=== PATIENT | male | born 1955 | race Caucasian/White ===

== ENCOUNTER 2016-10-21 10:28 | Inpatient (IN) | payer OTHER ==
[~2016-10-21] VITALS: Ht 190.5 cm; Wt 113.7 kg
[2016-10-21 11:58] VITALS: BP 159/110
[2016-10-21] MEDS ORDERED: HYDR12.547 PO (12:14)
[2016-10-21] MEDS ORDERED: ATOR10TA9 PO (12:14)
[2016-10-21] MEDS ORDERED: ALPR-475 PO (12:14)
[2016-10-21] MEDS ORDERED: METO25TA2 PO (12:14)
[2016-10-21] MEDS ORDERED: TADA5TAB2 PO (12:14)
[2016-10-21] MEDS ORDERED: LOSA100T6 PO (12:14)
[2016-10-21] MEDS ORDERED: MIDAZOLAM 1 MG/ML, 5ML ONE (12:32)
[2016-10-21] MEDS ORDERED: FENTANYL PF 250 MCG/5ML ONE (12:32)
[2016-10-21] MEDS ORDERED: METOPROLOL 1 MG/ML, 5ML ONE (12:56)
[2016-10-21] MEDS ORDERED: ENALAPRILAT 1.25 MG/ML, 2ML IV PRN (14:30)
[2016-10-21] MEDS ORDERED: SOTALOL 120MG TABLET PO ONE (14:30)
[2016-10-21 15:30] VITALS: BP 127/87
[2016-10-21 20:30] VITALS: BP 150/109
[2016-10-21] MEDS: ATORVASTATIN 10 MG TABLET PO SCH (20:33)
[2016-10-21 21:32] VITALS: BP 149/98
[2016-10-21] MEDS: SOTALOL 80MG TABLET PO SCH (21:34)
[2016-10-22] VITALS (7 sets, daily range): BP systolic 137–154; BP diastolic 88–107
[2016-10-22] MEDS: SOTALOL 80MG TABLET PO SCH ×3 (05:45→21:53)
[2016-10-22] MEDS: HYDROCHLOROTHIAZIDE 25 MG TABLET PO SCH (08:43)
[2016-10-22] MEDS: TADALAFIL 5 MG PO SCH (08:43)
[2016-10-22] MEDS: LOSARTAN 50MG TABLET PO SCH (08:43)
[2016-10-22] MEDS ORDERED: RIVAROXABAN 20 MG TABLET PO SCH ×2 (09:00)
[2016-10-22] MEDS: RIVAROXABAN 20 MG TABLET PO SCH (09:10)
[2016-10-22 10:21] LABS: BLOOD UREA NITROGEN 23 mg/dL (7-18)
[2016-10-22] MEDS ORDERED: PROPOFOL 10 MG/ML, 20ML ONE (14:33)
[2016-10-22] MEDS: ATORVASTATIN 10 MG TABLET PO SCH (21:53)
[2016-10-23 01:29] VITALS: BP 119/71
[2016-10-23 02:13] VITALS: BP 129/82
[2016-10-23 06:29] VITALS: BP 141/94
[2016-10-23] MEDS: TADALAFIL 5 MG PO SCH (08:15)
[2016-10-23] MEDS: HYDROCHLOROTHIAZIDE 25 MG TABLET PO SCH (08:16)
[2016-10-23] MEDS: LOSARTAN 50MG TABLET PO SCH (08:16)
[2016-10-23] MEDS: RIVAROXABAN 20 MG TABLET PO SCH (08:17)
[2016-10-23] MEDS: SOTALOL 80MG TABLET PO SCH (08:41)
[2016-10-23] MEDS ORDERED: SOTA80TA18 PO (10:13)
[2016-10-23] MEDS ORDERED: RIVA20TA PO (10:17)
[2016-10-23] MEDS ORDERED: SOTALOL 80MG TABLET PO SCH (21:00)
== END 2016-10-23 13:55 | disposition home or self-care (01) | DRG 309 ==
LOC: CACL 10:28 → 5SO 14:03 → CACL 14:05 → 5SO 14:05
PROVIDERS: ADMIT Internal Medicine Cardiovascular Disease; ATTEND Internal Medicine Cardiovascular Disease
PROC: 5A2204Z Restoration of Cardiac Rhythm, Single (ICD-10-PCS; 2016-10-21)
PROC: 5A2204Z Restoration of Cardiac Rhythm, Single (ICD-10-PCS; principal; 2016-10-22)
DX: I48.0 Paroxysmal atrial fibrillation (principal); D68.69 Other thrombophilia; E66.9 Obesity, unspecified; Z68.31 Body mass index [BMI] 31.0-31.9, adult; N52.9 Male erectile dysfunction, unspecified; E78.5 Hyperlipidemia, unspecified; I44.0 Atrioventricular block, first degree; I10 Essential (primary) hypertension; G47.30 Sleep apnea, unspecified; Z79.01 Long term (current) use of anticoagulants
CPT/HCPCS: 36415; 80048; 83735; 92960; 93005; J2250; J2704; J3010

== ENCOUNTER 2019-04-18 08:05 | Outpatient (CLI) | payer OTHER ==
[~2019-04-18 08:05] MED LIST: ALPR0.5T7 PO; ATOR10TA9 PO; HYDR12.547 PO; LOSA100T14 PO; METO25TA2 PO; REGADENOSON 0.4 MG/5 ML SYRINGE ONE; RIVA20TA PO; SOTA80TA18 PO; TADA5TAB2 PO
== END 2019-04-18 23:59 | disposition home or self-care (01) ==
LOC: CFH 08:05
PROVIDERS: ATTEND Internal Medicine Cardiovascular Disease
DX: I10 Essential (primary) hypertension (principal); F17.200 Nicotine dependence, unspecified, uncomplicated
CPT/HCPCS: 78452; 93017; A9502; J2785

== ENCOUNTER → 2019-05-16 | Outpatient (CLI) | payer OTHER ==
[~2019-05-16] MED LIST changes: -REGADENOSON 0.4 MG/5 ML SYRINGE ONE
== END | disposition home or self-care (01) ==
LOC: CVU 08:44
PROVIDERS: ATTEND Internal Medicine Cardiovascular Disease
CPT/HCPCS: 93922; 93925

== ENCOUNTER → 2019-07-05 | Outpatient (CLI) | payer OTHER | END | disposition home or self-care (01) | LOC: CVU 12:32 | PROVIDERS: ATTEND Internal Medicine Cardiovascular Disease | DX: I08.3 Combined rheumatic disorders of mitral, aortic and tricuspid valves (principal); I11.9 Hypertensive heart disease without heart failure; E78.5 Hyperlipidemia, unspecified; I48.91 Unspecified atrial fibrillation | CPT/HCPCS: 93306 ==